=== PATIENT | male | born 1990 | race African-American/Black ===

== ENCOUNTER 2018-03-07 11:14 | Emergency (ER) | payer SELFPAY | END 2018-03-07 12:44 | disposition home or self-care (01) | LOC: ERS 11:14 | DX: R11.2 Nausea with vomiting, unspecified (principal); F17.210 Nicotine dependence, cigarettes, uncomplicated | CPT/HCPCS: 99283 ==

== ENCOUNTER 2025-09-11 07:35 | Emergency (ER) | payer OTHER ==
[2025-09-11] MEDS ORDERED: Dexamethasone 10 MG/ML VIAL ONE (08:31)
== END 2025-09-11 08:40 | disposition home or self-care (01) ==
LOC: ERS 07:35
DX: B34.9 Viral infection, unspecified (principal); F17.210 Nicotine dependence, cigarettes, uncomplicated
CPT/HCPCS: 71045; 87081; 87428; 87430; 96372; J1100